=== PATIENT | male | born 1940 | race Caucasian/White ===

== ENCOUNTER 2016-09-13 14:22 | Emergency (ER) | payer BC | END 2016-09-13 15:25 | disposition home or self-care (01) | LOC: ER1 14:22 | DX: S51.811A Laceration without foreign body of right forearm, initial encounter (principal); K21.9 Gastro-esophageal reflux disease without esophagitis; Z79.899 Other long term (current) drug therapy; Z79.82 Long term (current) use of aspirin; W45.0XXA Nail entering through skin, initial encounter | CPT/HCPCS: 99283 ==

== ENCOUNTER 2020-04-06 20:32 | Emergency (ER) | payer MEDICARE, OTHER ==
[~2020-04-06 20:32] MED LIST: ASPIRIN81 MG PO; PROTONIX40 M1 PO
[2020-04-06 21:46] LABS: RED BLOOD COUNT 4.71 M/UL (4.20-5.50); WHITE BLOOD COUNT 7.2 K/UL (4.5-11.0)
[2020-04-06 22:55] LABS: BUN/CREATININE RATIO 12 (0-10)
[2020-04-07] MEDS ORDERED: PROTONIX 40 MG40 M1 PO (00:44)
[2020-04-07] MEDS ORDERED: PERCOCET 5/325 T1 EA PO ×2 (00:44→00:47)
== END 2020-04-07 01:28 | disposition home or self-care (01) ==
LOC: ER1 20:32
PROVIDERS: Family Medicine
DX: K40.90 Unilateral inguinal hernia, without obstruction or gangrene, not specified as recurrent (principal); M54.16 Radiculopathy, lumbar region; I10 Essential (primary) hypertension
CPT/HCPCS: 72131; 80053; 81001; 83690; 85025; 96374; 96375; 96376; 99284; J2270; J2405; Q9967